=== PATIENT | female | born 1955 | race American Indian/Alaskan Native ===

== ENCOUNTER 2018-02-10 05:50 | Day surgery (SDC) | payer OTHER ==
[~2018-02-10 05:50] MED LIST: NACL 0.9% 1000 ML 1,000 ML IV SCH
[2018-02-10] MEDS ORDERED: WATER FOR IRRIG STERILE ONE (07:08)
[2018-02-10] MEDS ORDERED: WATER FOR IRRIG STERILE IR ONE (07:08)
[2018-02-10] MEDS ORDERED: NACL 0.9% 1000 ML 1,000 ML IV SCH (07:41)
--- NOTE | 2018-02-10 07:49 | Anesthesia Consultation ---
Anesthesia Consult and Med Hx Date of service: 02/10/18 - Airway Anesthetic Teeth Evaluation: Caps (removable front cap) ROM Head & Neck: Adequate Mental/Hyoid Distance: Adequate Mallampati Class: Class I Intubation Access Assessment: Good - Pulmonary Exam CTA: Yes - Cardiac Exam Cardiac Exam: RRR - Pre-Operative Health Status ASA Pre-Surgery Classification: ASA3 Proposed Anesthetic Plan: MAC - Pulmonary Hx Asthma: Yes (rare inhaler use ) Hx Sleep Apnea: Yes (cpap) - Cardiovascular System Hx Hypertension: Yes - Endocrine Hx Non-Insulin Dependent Diabetes: Yes - Other Systems Hx Obesity: Yes
--- NOTE | 2018-02-10 07:50 | Anesthesia Day of Surgery ---
Anesthesia Day of Surgery - Day of Surgery Patient Examined: Yes Patient H&P Reviewed: Yes Patient is NPO: Yes
[2018-02-10] MEDS ORDERED: DIPRIVAN 10 MG/ML IV ONE ×2 (07:54)
[2018-02-10] MEDS ORDERED: XYLOCAINE 1% 20 mL ONE (07:54)
--- NOTE | 2018-02-10 09:02 | Short Stay Summary ---
Short Stay Documentation Date of service: 02/10/18 Narrative H&P: The patient presents for screening colonoscopy, average risks. Last study 10 years ago. - History Past Medical History: hypertension, other (morbid obesiey, sleep apnea requiring CPAP, asthmqa) Past Surgical History: hysterectomy Social history: no smoking, no alcohol abuse, no prescription drug abuse - Allergies and Medications Current Medications: Allergies ibuprofen [From Motrin] Allergy (Severe, Verified 02/10/18 07:16) Shortness of Breath Active Medications Sodium Chloride (Nacl 0.9% 1000 Ml) 1,000 mls @ 50 mls/hr IV DIRECT MARTIN - Physical exam General appearance: no acute distress, well-nourished, obese Integumentary: no rash, no growths, no abnormal pigmentation HEENT: Atraumatic, PERRLA, EOMI, Mucous membr. moist/pink Lungs: Clear to auscultation, Normal air movement Heart: Regular rate, Normal S1, Normal S2, No murmurs Gastrointestinal: normoactive bowel sounds, no tenderness, no distended, no masses, no organomegaly, no hepatomegaly, no splenomegaly, obese Female Genitourinary: deferred Rectal Exam: normal exam-external/orifice, no mass Extremities: no ischemia, pulses intact, pulses symmetrical, No edema, normal temperature, Full ROM Neurological: Normal gait, Normal speech, Strength at 5/5 X4 ext, Normal tone, Sensation intact, Cranial nerves 3-12 NL - Brief post op/procedure progress note Date of procedure: 02/10/18 Findings: see dictated report. Estimated blood loss: none Pathology: list (hepatic flexure polyp) Specimen disposition: to lab Condition: stable - Disposition Condition at discharge: Good Disposition: DC-01 TO HOME OR SELFCARE - Discharge Diagnoses (1) Colon cancer screening Status: Acute Short Stay Discharge Plan Activity: other (no driving for 24 hours) Weight Bearing Status: Full Weight Bearing Diet: regular Follow up with: VERA ZHOU MD [Primary Care Provider] - 7 Days
--- NOTE | 2018-02-10 09:09 | Operative Report ---
Operative Report Operative Report: Date of procedure: 02/10/2018 Preprocedure diagnosis: Colon cancer screening. Last study 10 years ago. Average risk. Post procedure diagnosis:8 mm pedunculated polyp in the hepatic flexure. Scattered left colon diverticula Procedure: Colonoscopy to the cecum with hot snare polypectomy Endoscopist: Dr. Blancas Anesthesia: Monitored anesthesia care per anesthesia department Estimated blood loss: 0 Medications: Monitored anesthesia care. See separate report by anesthesia for details. After careful discussion of the nature and purpose of the procedure as well as details of the technique risks benefits and alternatives the patient gave consent. Please see recent history and physical from the office. The patient was placed in the left lateral decubitus position and medicated per anesthesia. A rectal exam was performed sphincter tone was normal there were no masses palpable. The [place] 570 scope was passed transanally and advanced under continuous direct vision without difficulty to the cecum. The colon was well prepared. The cecum was normal. The ascending colon was normal and on forward and retroflexed views. There was an 8 mm pedunculated polyp in the hepatic flexure which was removed with snare and electrocautery and retrieved by suction. The transverse colon was normal. The descending colon and sigmoid colon revealed scattered diverticula. The rectum was normal on forward and retroflexed views. The procedure was well-tolerated overall and the patient was observed in recovery. Conclusions: 8 mm polyp in the hepatic flexure. Scattered left colon diverticula. Plan: Await pathology. Repeat colonoscopy in 5 years, sooner if clinically indicated or indicated by pathology. Signed electronically: Bruno Blancas M.D.
[2018-02-10 09:22] VITALS: BP 126/75
== END 2018-02-10 05:51 | disposition home or self-care (01) ==
LOC: GIO 05:50
PROVIDERS: ATTEND Internal Medicine Gastroenterology
DX: Z12.11 Encounter for screening for malignant neoplasm of colon (principal); D12.3 Benign neoplasm of transverse colon; K57.30 Diverticulosis of large intestine without perforation or abscess without bleeding; I10 Essential (primary) hypertension; G47.30 Sleep apnea, unspecified; J45.909 Unspecified asthma, uncomplicated; E11.9 Type 2 diabetes mellitus without complications; E66.01 Morbid (severe) obesity due to excess calories; Z68.43 Body mass index [BMI] 50.0-59.9, adult; Z79.899 Other long term (current) drug therapy; Z99.89 Dependence on other enabling machines and devices; Z90.710 Acquired absence of both cervix and uterus; Z88.6 Allergy status to analgesic agent
CPT/HCPCS: 45385; 82962; 88305; J2704; J7030